=== PATIENT | female | born 1950 | race Caucasian/White ===

== ENCOUNTER 2018-01-04 01:13 | Outpatient (CLI) | payer MEDICARE, SELFPAY ==
--- NOTE | 2018-01-04 09:47 | DI.REPORT_ITS ---
SYMPTOM/DIAGNOSIS: SCREENING, Z12.31 MAMMOGRAM: 01/04 Mammograms were interpreted according to the usual protocol including computer analysis with CAD system, tomosynthesis and C view imaging. The breasts are heterogeneously dense. No dominant mass or clumped microcalcification identified in either breast. The current examination is compared with previous examinations including Apr 2016 and there is increased prominence of the focal area of asymmetric density projected superior portion of the right breast on MLO view only. Additional mammographic views of this area requested to include MLO spot compression view of the right breast. CONCLUSION: Additional mammographic views right breast requested as described above. Breast ultrasound may be indicated as well depending on results of additional mammographic views. Category 0. breast density category C. MQSA ASSESSMENT OF FINDINGS: Incomplete: Needs additional imaging evaluation. Category 0. Patient will receive a letter notifying them of these results. Bi-RADS category C. The breasts are heterogeneously dense, which may obscure small masses.
== END 2018-01-04 01:14 ==
PROVIDERS: PCP Nurse Practitioner; Visit Provider Nurse Practitioner
DX: Z12.31 Encounter for screening mammogram for malignant neoplasm of breast (principal); R92.8 Other abnormal and inconclusive findings on diagnostic imaging of breast
CPT/HCPCS: 77063; 77067

== ENCOUNTER 2018-01-11 01:48 | Outpatient (CLI) | payer MEDICARE, SELFPAY ==
[2018-01-11 11:54] LABS: Abs Immature Grans 0.03 k/cumm (0.0-0.09); Absolute Basophil Count 0.04 k/cumm (0.0-0.2); Absolute Lymphocyte Count 1.63 k/cumm (1.2-3.4); Absolute Monocyte Count 0.56 k/cumm (0.11-0.7); Absolute Neutrophil Count 3.87 k/cumm (1.2-6.7); Basophils % 0.6; Eosinophils % 3.2; HCT 45.6 % (36.0-46.0); HGB 14.9 g/dL (12.0-15.5); Immature Grans % 0.5; Lymphocytes % 25.8; Mean Corp. HGB Concentration 32.7 g/dL (32.0-36.0); Mean Corpuscular Hemoglobin 29.8 pg (27.0-33.0); Mean Corpuscular Volume 91.2 fL (80-95); Mean Platelet Volume 10.6 fL (8.0-11.0); Monocytes % 8.8; Neutrophils % 61.1; Platelet Count 269 x1000/uL (130-400); RBC Distribution Width 14.2 % (11.7-14.6); White Blood Cell Count 6.33 k/cumm (4.4-10.8)
[2018-01-11 12:05] LABS: ALT 65 U/L (12-78); AST 29 U/L (15-37); Alkaline Phosphatase 150 U/L (46-116); Anion Gap 8.2 mmol/L (3-11); BUN 18 mg/dL (7-18); Bilirubin, Total 0.4 mg/dL (0.2-1.0); CO2 28.8 mmol/L (21.0-32.0); CREATININE 0.74 mg/dL (0.55-1.02); Calcium 9.1 mg/dL (8.5-10.1); Chloride 104 mmol/L (98-107); Cholesterol 249 mg/dL (50-200); Glucose 88 mg/dL (70-100); HDL Cholesterol 60 mg/dL (40-60); LDL CHOLESTEROL 157 mg/dL (<100); Potassium 4.6 mmol/L (3.5-5.1); Sodium 141 mmol/L (136-145); Total Protein 7.2 g/dL (6.4-8.2); Triglyceride 125 mg/dL (30-150)
== END 2018-01-11 01:49 ==
PROVIDERS: PCP Nurse Practitioner; Visit Provider Nurse Practitioner
DX: E78.5 Hyperlipidemia, unspecified (principal)
CPT/HCPCS: 36415; 80053; 80061; 83721; 85025

== ENCOUNTER 2018-01-28 01:39 | Outpatient (CLI) | payer MEDICARE, SELFPAY ==
--- NOTE | 2018-01-28 13:50 | DI.REPORT_ITS ---
SYMPTOMS/DIAGNOSIS: F/U ABNORMAL MAMMO, ASYMMETRIC DENSITY IN SUPERIOR PORTION ON MLO VIEW ADDITIONAL MAMMOGRAPHIC VIEWS OF THE RIGHT BREAST AND RIGHT BREAST MAMMOGRAM: Additional images are interpreted according to the usual protocol including tomosynthesis and 2D imaging. Follow-up mediolateral compression spot films of the right breast were obtained. The breast tissue is heterogeneously radiodense, which lowers the sensitivity of the study. No discrete mass is identified. At ultrasound, no cyst or mass is seen. SUMMARY: No evidence of malignancy, category 1. Yearly screening mammography is recommended. Breast density category C. MQSA ASSESSMENT OF FINDINGS: Negative. Category 1. Patient will receive a letter notifying them of these results. Bi-RADS category C. The breasts are heterogeneously dense, which may obscure small masses.
== END 2018-01-28 01:40 ==
PROVIDERS: PCP Nurse Practitioner; Visit Provider Nurse Practitioner
DX: Z12.31 Encounter for screening mammogram for malignant neoplasm of breast (principal); R92.8 Other abnormal and inconclusive findings on diagnostic imaging of breast; N64.59 Other signs and symptoms in breast
CPT/HCPCS: 76642; 77063; 77067

== ENCOUNTER 2018-12-01 18:23 | Outpatient (REF) | payer MEDICARE, SELFPAY | END 2018-12-01 18:43 | LOC: LBN 18:23 | PROVIDERS: PCP Nurse Practitioner; Visit Provider Nurse Practitioner | DX: R31.9 Hematuria, unspecified (principal); R82.90 Unspecified abnormal findings in urine | CPT/HCPCS: 87086 ==

== ENCOUNTER 2019-01-05 00:50 | Outpatient (CLI) | payer MEDICARE, SELFPAY ==
--- NOTE | 2019-01-05 10:53 | DI.RAD_ITS ---
SYMPTOM/DIAGNOSIS: LOW BACK PAIN, M54.5 LUMBAR SPINE: No compression fracture, spondylolysis or spondylolisthesis is seen. There is no significant scoliosis. The disc spaces are well maintained. There are facet degenerative changes, greatest at L 4-5. The aorta is calcified but appears normal in diameter. There are surgical clips in the right upper quadrant. IMPRESSION: Facet degenerative changes greatest at L 4-5.
--- NOTE | 2019-01-05 11:28 | DI.MAMMO_ITS ---
SYMPTOM/DIAGNOSIS: SCREENING BILATERAL SCREENING MAMMOGRAM: Mammograms were interpreted according to the usual protocol including computer analysis with CAD system, tomosynthesis and C view imaging. Comparison is made with with exams from 2013 through 2018. Breast density category B. Biopsy marker clips are again noted in the upper, outer quadrant of the left breast. There are no suspicious masses or suspicious microcalcifications. There has been no significant change. IMPRESSION: Category 1, negative mammogram. Yearly screening mammography is recommended. Breast density category B. SA ASSESSMENT OF FINDINGS: Negative. Category 1. Patient will receive a letter notifying them of these results. BI-RADS category B. There are scattered areas of fibroglandular density.
== END 2019-01-05 01:10 ==
PROVIDERS: PCP Nurse Practitioner; Visit Provider Nurse Practitioner
DX: M54.5 Low back pain (principal); Z12.31 Encounter for screening mammogram for malignant neoplasm of breast; M47.816 Spondylosis without myelopathy or radiculopathy, lumbar region
CPT/HCPCS: 77063; 77067; 72110

== ENCOUNTER 2019-01-24 01:59 | Outpatient (CLI) | payer MEDICARE, SELFPAY ==
[2019-01-24 11:00] LABS: Calculated LDL 158 mg/dL; Cholesterol 248 mg/dL (50-200); HDL Cholesterol 60 mg/dL (40-60); Triglyceride 151 mg/dL (30-150)
== END 2019-01-24 02:19 ==
PROVIDERS: PCP Nurse Practitioner; Visit Provider Nurse Practitioner
DX: E78.5 Hyperlipidemia, unspecified (principal)
CPT/HCPCS: 36415; 80061; 83721

== ENCOUNTER 2019-02-11 10:55 | Outpatient (CLI) | payer MEDICARE, SELFPAY ==
[2019-02-14 12:08] LABS: Lyme Ab w Rflx to Lyme Confirm Negative
[2019-02-14 19:09] LABS: Anaplasma phagocytophilum Negative (Negative); B. miyamotoi PCR Negative (Negative); Babesia divergens/MO-1 Negative (Negative); Babesia duncani Negative (Negative); Babesia microti Negative (Negative); Ehrlichia chaffeensis Negative (Negative); Ehrlichia ewingii/canis Negative (Negative); Ehrlichia muris eauclairensis Negative (Negative)
== END 2019-02-11 11:15 ==
PROVIDERS: PCP Nurse Practitioner; Visit Provider Nurse Practitioner Family
DX: R53.83 Other fatigue (principal); W57.XXXA Bitten or stung by nonvenomous insect and other nonvenomous arthropods, initial encounter; T14.8XXA Other injury of unspecified body region, initial encounter
CPT/HCPCS: 36415; 87798; 86618

== ENCOUNTER 2019-11-14 08:31 | Outpatient (CLI) | payer MEDICARE, SELFPAY ==
[2019-11-15 15:37] LABS: COVID-19 RT-PCR UVMMC Result Negative (Negative)
== END 2019-11-14 08:51 ==
PROVIDERS: PCP Nurse Practitioner; Visit Provider Surgery
DX: Z03.818 Encounter for observation for suspected exposure to other biological agents ruled out (principal); Z01.818 Encounter for other preprocedural examination
CPT/HCPCS: U0003

== ENCOUNTER 2020-01-13 03:18 | Outpatient (CLI) | payer MEDICARE, SELFPAY ==
[2020-01-13 12:42] LABS: ALT 28 U/L (14-59); AST 22 U/L (15-37); Albumin 3.7 g/dL (3.4-5.0); Alkaline Phosphatase 103 U/L (46-116); Anion Gap 8.7 mmol/L (3-11); BUN 16 mg/dL (7-18); Bilirubin, Total 0.3 mg/dL (0.2-1.0); CO2 27.3 mmol/L (21.0-32.0); CREATININE 0.81 mg/dL (0.55-1.02); Calcium 8.8 mg/dL (8.5-10.1); Chloride 104 mmol/L (98-107); Glucose 96 mg/dL (74-106); Potassium 3.9 mmol/L (3.5-5.1); Sodium 140 mmol/L (136-145); Total Protein 6.8 g/dL (6.4-8.2)
[2020-01-13 12:58] LABS: ESR 16 mm/hr (0-30)
[2020-01-13 13:08] LABS: Calculated LDL 171 mg/dL (<100); Cholesterol 255 mg/dL (<200); HDL Cholesterol 59 mg/dL (40-60); Triglyceride 125 mg/dL (<150)
== END 2020-01-13 03:38 ==
PROVIDERS: PCP Nurse Practitioner; Visit Provider Nurse Practitioner
DX: E78.5 Hyperlipidemia, unspecified (principal); M25.50 Pain in unspecified joint
CPT/HCPCS: 36415; 80053; 80061; 85652; 86140

== ENCOUNTER 2020-01-25 03:30 | Outpatient (CLI) | payer MEDICARE, SELFPAY ==
[2020-01-25 21:24] LABS: Rheumatoid Factor <8.6 IU/mL (<12.0)
[2020-01-26 10:46] LABS: Lyme Ab w Rflx to Lyme Confirm Negative (Negative)
[2020-01-26 15:46] LABS: ANA Interpretation Negative (Negative)
== END 2020-01-25 03:50 ==
PROVIDERS: PCP Nurse Practitioner; Visit Provider Nurse Practitioner
DX: M25.551 Pain in right hip (principal); M25.552 Pain in left hip; M25.561 Pain in right knee; M25.562 Pain in left knee; M54.9 Dorsalgia, unspecified
CPT/HCPCS: 36415; 86038; 86431; 86618

== ENCOUNTER 2020-02-07 03:32 | Outpatient (CLI) | payer MEDICARE, SELFPAY ==
--- NOTE | 2020-02-07 13:08 | DI.MAMMO_ITS ---
EXAM: MAMMO SCREENING CLINICAL HISTORY: screening Z12.39 TECHNIQUE: Mammograms were interpreted according to the usual protocol including computer analysis w [employer] CAD system, tomosynthesis and C-view imaging. COMPARISON: 2011 through 2018 FINDINGS: The breasts are composed of scattered fibroglandular densities, Breast Density category B. No suspicious masses or suspicious microcalcifications are seen. No skin thickening or abnormal axillary lymph nodes are seen. Biopsy marker clips are again noted in the upper outer quadrant breast. Vascular calcifications are also seen. There has been no significant change from prior exams. IMPRESSION: BI-RADS Category 1, Negative mammogram Yearly screening mammography is recommended. Breast Density - Category B, scattered fibroglandular densities. A negative radiographic report should not delay biopsy if a dominant or clinically suspicious mass is present. Up to ten percent of cancers are not identified on mammography. A negative report may reinforce clinical impression. Adenosis and dense breasts may obscure an underlying neoplasm. False positive reports average 6 to 10%. Patient will receive a letter notifying them of these results.
== END 2020-02-07 03:52 ==
PROVIDERS: PCP Nurse Practitioner; Visit Provider Nurse Practitioner
DX: Z12.31 Encounter for screening mammogram for malignant neoplasm of breast (principal)
CPT/HCPCS: 77063; 77067

== ENCOUNTER 2020-02-20 01:05 | Outpatient (CLI) | payer MEDICARE, SELFPAY ==
--- NOTE | 2020-02-20 16:09 | DI.DEXA_ITS ---
EXAM: XR DEXA BONE DENSITY W/WO KALIE CLINICAL HISTORY: evaluation for osteoporosis m85.88 TECHNIQUE: COMPARISON: CR XR lumbar spine complete from 01/05/2019 FINDINGS: Lateral Spine Image: Unremarkable. No compression deformities identified. Left hip: Total T-Score: -1.6 Total Z-Score: 0.2 T- and Z-scores: Consistent with osteopenia and increased fracture risk. Lumbar Spine: Total T-Score: -3.4 Total Z-Score: -1.4 T- and Z-scores: Consistent with osteoporosis and high fracture risk. IMPRESSION: Osteoporosis in the lumbar spine.
== END 2020-02-20 01:25 ==
PROVIDERS: PCP Nurse Practitioner; Visit Provider Nurse Practitioner
DX: M85.88 Other specified disorders of bone density and structure, other site (principal)
CPT/HCPCS: 77080

== ENCOUNTER 2021-02-01 20:14 | Outpatient (REF) | payer OTHER, SELFPAY ==
[2021-02-01 21:00] LABS: HCT 45.7 % (36.0-46.0); HGB 14.7 g/dL (11.2-15.7); MCH 29.9 pg (27.0-33.0); MCHC 32.2 % (32.0-36.0); MCV 92.9 fL (80-95); MPV 10.7 fL (8.0-11.0); Platelet Count 304 10^3/uL (130-400); RBC 4.92 10^6/uL (3.93-5.22); RDW 13.4 % (11.7-14.6); RDW-SD 45.8 fL; WBC 7.73 10^3/uL (4.4-10.8)
[2021-02-01 21:17] LABS: ALT 66 U/L (14-59); AST 48 U/L (15-37); Albumin 4.4 g/dL (3.4-5.0); Alkaline Phosphatase 119 U/L (46-116); Anion Gap 10.7 mmol/L (3-11); BUN 14 mg/dL (7-18); Bilirubin, Total 0.5 mg/dL (0.2-1.0); CO2 28.3 mmol/L (21.0-32.0); CREATININE 0.9 mg/dL (0.55-1.02); Calcium 9.5 mg/dL (8.5-10.1); Calculated LDL 183 mg/dL (<100); Chloride 104 mmol/L (98-107); Cholesterol 270 mg/dL (<200); Glucose 91 mg/dL (74-106); HDL Cholesterol 69 mg/dL (40-60); Potassium 4.1 mmol/L (3.5-5.1); Sodium 143 mmol/L (136-145); Total Protein 7.4 g/dL (6.4-8.2); Triglyceride 92 mg/dL (<150)
== END 2021-02-01 20:15 | disposition home or self-care (01) ==
LOC: LBN 20:14
PROVIDERS: PCP Nurse Practitioner; Visit Provider Nurse Practitioner
DX: E78.5 Hyperlipidemia, unspecified (principal)
CPT/HCPCS: 80053; 80061; 85027

== ENCOUNTER 2021-02-07 01:47 | Outpatient (CLI) | payer OTHER, SELFPAY ==
--- NOTE | 2021-02-07 08:00 | DI.MAMMO_ITS ---
Exam(s) MAMMO SCREENING EXAM: MAMMO SCREENING CLINICAL HISTORY: screening,Z12.39. TECHNIQUE: Bilateral full field digital CC and MLO mammographic images were obtained with 3D tomosyn thesis and utilizing computer aided detection (CAD). COMPARISON: Prior mammograms dating back to 2011, the most recent being January 2020. FINDINGS: There has been no significant change in the appearance and distribution of fibroglandular tissue. No new findings in the immediate vicinity of the biopsy marker devices in the left breast. There are no new spiculated masses nor malignant appearing microcalcification groups. There is no significant architectural distortion nor skin thickening-retraction. IMPRESSION: No radiographic evidence of malignancy. BI-RADS Category 1 - Negative Breast Density - Category B - Scattered areas of fibroglandular density Breast density Category C or D implies that the patient has dense breast tissue. Dense breast tissue can make it harder to find cancer on a mammogram. Dense breast tissue is also associated with an incr eased risk of breast cancer. This information about the result of the mammogram report was provided to the patient to raise their awareness. Use this report when you speak with the patient about their risks for breast cancer, which includes their family history. At that time, you may recommend additional screening tests (Ultrasoun d or MRI) as these tests may add significant information. A negative radiographic report should not delay biopsy if a dominant or clinically suspicious mass is present. Up to ten percent of cancers are not identified on mammography. A negative report may reinforce clinical impression. Adenosis and dense breasts may obscure an underlying neoplasm. False positive reports average 6 to 10%. Patient will receive a letter notifying them of these results.
== END 2021-02-07 02:07 ==
LOC: DI 01:47
PROVIDERS: PCP Nurse Practitioner; Visit Provider Nurse Practitioner
DX: Z12.31 Encounter for screening mammogram for malignant neoplasm of breast (principal)
CPT/HCPCS: 77063; 77067

== ENCOUNTER 2021-02-20 13:11 | Outpatient (REF) | payer OTHER, SELFPAY ==
[2021-02-20 15:01] LABS: ALT 31 U/L (14-59); AST 22 U/L (15-37); Alkaline Phosphatase 108 U/L (46-116); Bilirubin, Direct 0.1 mg/dL (0.0-0.2); Bilirubin, Total 0.3 mg/dL (0.2-1.0); Total Protein 7.3 g/dL (6.4-8.2)
== END 2021-02-20 13:12 | disposition home or self-care (01) ==
LOC: LBN 13:11
PROVIDERS: PCP Nurse Practitioner; Visit Provider Nurse Practitioner
DX: R79.89 Other specified abnormal findings of blood chemistry (principal)
CPT/HCPCS: 80076

== ENCOUNTER 2021-11-04 03:55 | Outpatient (CLI) | payer MEDICARE, SELFPAY | END 2021-11-04 03:56 | disposition home or self-care (01) | LOC: LBO 03:55 | PROVIDERS: PCP Nurse Practitioner; Visit Provider Nurse Practitioner ==

== ENCOUNTER 2021-11-28 02:36 | Outpatient (CLI) | payer MEDICARE, SELFPAY ==
[2021-12-02 15:05] LABS: TB Interpretation Negative (Negative); TB2 Ag minus Nil 0.03 IU/mL
== END 2021-11-28 02:37 | disposition home or self-care (01) ==
LOC: LBO 02:36
PROVIDERS: PCP Nurse Practitioner; Visit Provider Nurse Practitioner
DX: Z11.1 Encounter for screening for respiratory tuberculosis (principal)
CPT/HCPCS: 36415; 86480

== ENCOUNTER 2022-01-24 01:11 | Outpatient (CLI) | payer MEDICARE, SELFPAY ==
[2022-01-24 09:34] LABS: ALT 21 U/L (14-59); AST 18 U/L (15-37); Albumin 3.6 g/dL (3.4-5.0); Alkaline Phosphatase 91 U/L (46-116); Anion Gap 7.2 mmol/L (3-11); BUN 14 mg/dL (7-18); Bilirubin, Total 0.4 mg/dL (0.2-1.0); CO2 30.8 mmol/L (21.0-32.0); CREATININE 0.7 mg/dL (0.55-1.02); Calcium 8.9 mg/dL (8.5-10.1); Calculated LDL 153 mg/dL (<100); Chloride 105 mmol/L (98-107); Cholesterol 243 mg/dL (<200); Glucose 94 mg/dL (74-106); HDL Cholesterol 66 mg/dL (40-60); Potassium 3.8 mmol/L (3.5-5.1); Sodium 143 mmol/L (136-145); Total Protein 7.4 g/dL (6.4-8.2); Triglyceride 120 mg/dL (<150)
== END 2022-01-24 01:12 | disposition home or self-care (01) ==
LOC: LBO 01:12
PROVIDERS: PCP Nurse Practitioner; Visit Provider Internal Medicine
DX: E78.00 Pure hypercholesterolemia, unspecified (principal); R79.89 Other specified abnormal findings of blood chemistry
CPT/HCPCS: 36415; 80053; 80061

== ENCOUNTER → 2022-02-10 01:58 | Outpatient (CLI) | payer MEDICARE, SELFPAY ==
--- NOTE | 2022-02-10 08:45 | DI.MAMMO_ITS ---
Exam(s) MAMMO SCREENING EXAM: MAMMO SCREENING CLINICAL HISTORY: screening,Z12.39. TECHNIQUE: Bilateral full field digital CC and MLO mammographic images were obtained with 3D tomosyn thesis and utilizing computer aided detection (CAD). COMPARISON: Prior mammograms were reviewed, the most recent being January 2021.. FINDINGS: There has been no significant change in the appearance and distribution of the fibroglandular tissue. No new findings in the region of the biopsy marker devices in the breast. There are no new spiculated masses nor malignant appearing microcalcification groups. There is no significant architectural distortion nor skin thickening-retraction. IMPRESSION: No radiographic evidence of malignancy. BI-RADS Category 1 - Negative Breast Density - Category B - Scattered areas of fibroglandular density Breast density Category C or D implies that the patient has dense breast tissue. Dense breast tissue can make it harder to find cancer on a mammogram. Dense breast tissue is also associated with an incr eased risk of breast cancer. This information about the result of the mammogram report was provided to the patient to raise their awareness. Use this report when you speak with the patient about their risks for breast cancer, which includes their family history. At that time, you may recommend additional screening tests (Ultrasoun d or MRI) as these tests may add significant information. A negative radiographic report should not delay biopsy if a dominant or clinically suspicious mass is present. Up to ten percent of cancers are not identified on mammography. A negative report may reinforce clinical impression. Adenosis and dense breasts may obscure an underlying neoplasm. False positive reports average 6 to 10%. Patient will receive a letter notifying them of these results.
== END ==
PROVIDERS: PCP Nurse Practitioner; Visit Provider Internal Medicine
DX: Z12.31 Encounter for screening mammogram for malignant neoplasm of breast (principal)
CPT/HCPCS: 77063; 77067

== ENCOUNTER 2022-11-19 12:24 | Emergency (ER) | payer MEDICARE, SELFPAY ==
[2022-11-19] VITALS (43 sets, daily range): BP systolic 83–128; BP diastolic 45–71; PULSE 63–81; RESP 11–21; TEMP 36.8; O2SAT 95–100
--- NOTE | 2022-11-19 12:45 | RT.EKG_ITS ---
APPROVED REPORT Exam: Resting ECG Reason for Exam: chest pain Patient Location: E HR:72 bpm ECG Measurements Heart Rate 72 AXIS RI 142 P 64 QRSd 102 QRS 68 QT 394 T 36 QTc 431 Conclusion Sinus rhythm...normal P axis, V-rate 60- 99 Sinus rhytm. No prior.
[2022-11-19 13:36] LABS: Abs Immature Grans 0.01 10^3/uL (0.0-0.06); Absolute Basophil Count 0.03 10^3/uL (0.0-0.2); Absolute Eosinophil Count 0.14 10^3/uL (0.0-0.7); Absolute Lymphocyte Count 1.53 10^3/uL (1.2-3.4); Absolute Monocyte Count 0.45 10^3/uL (0.1-0.8); Absolute Neutrophil Count 3.95 10^3/uL (1.2-6.7); Basophils % 0.5; Eosinophils % 2.3; HCT 41.1 % (36.0-46.0); HGB 13.7 g/dL (11.2-15.7); Immature Grans % 0.2; MCH 30.9 pg (27.0-33.0); MCHC 33.3 % (32.0-36.0); MCV 93 fL (80-95); Monocytes % 7.4; Neutrophils % 64.6; Platelet Count 290 10^3/uL (130-400); RBC 4.43 10^6/uL (3.93-5.22); RDW 13.1 % (11.7-14.6); RDW-SD 44.6 fL; WBC 6.11 10^3/uL (4.4-10.8)
[2022-11-19] MEDS: FAMOTIDINE 20 MG in Normal Saline 100 ML 400 MG IVPB (13:51)
[2022-11-19 14:00] LABS: ALT 32 U/L (14-59); AST 28 U/L (15-37); Albumin 3.8 g/dL (3.4-5.0); Alkaline Phosphatase 132 U/L (46-116); Anion Gap 7.9 mmol/L (3-11); BUN 21 mg/dL (7-18); Bilirubin, Total 0.3 mg/dL (0.2-1.0); CO2 29.1 mmol/L (21.0-32.0); CREATININE 0.9 mg/dL (0.55-1.02); Calcium 9.4 mg/dL (8.5-10.1); Chloride 102 mmol/L (98-107); Estimated GFR 68.35 (mL/min/1.73m2); Glucose 95 mg/dL (74-106); Lipase 25 U/L (16-77); Magnesium 2.1 mg/dL (1.8-2.4); Potassium 4.2 mmol/L (3.5-5.1); Sodium 139 mmol/L (136-145)
[2022-11-19 14:05] LABS: Troponin I < 50 ng/L (<or=60)
--- NOTE | 2022-11-19 14:30 | DI.RAD_ITS ---
Exam(s) XR CHEST 2V PA LATERAL EXAM: XR CHEST 2V PA LATERAL CLINICAL HISTORY: chest pain TECHNIQUE: 2D digital imaging was performed of the chest. Two images were obtained. PA and lateral views were obtained. COMPARISON: No exams were available for comparison FINDINGS: MEDIASTINUM: Normal. HEART: Normal. PULMONARY VASCULATURE: Normal. LUNGS: Clear. PLEURAL SPACE: No pleural effusion or pneumothorax. BONE:Within normal limits for the patient's age. OTHER FINDINGS:Normal. IMPRESSION: No acute pulmonary findings. DATA REPOSITORY: RADIATION DOSE DELIVERED:
--- NOTE | 2022-11-19 14:40 | W.ED.GENAD ---
Discharge Plan Disposition Patient Disposition: Home Condition: Improving Discharge Details Clinical Impression: Acute epigastric pain Primary Care Provider: Raine Lay ED Provider: Guy James Home Meds and New Rx's Prescriptions: New sucralfate [Carafate] 1 gram tablet 1 g PO BID Qty: 20 0RF Continued omeprazole 20 mg Tablet,Delayed Release (Dr/Ec) PO Discharge Instructions Instructions: Abdominal Pain (ED) Additional Instructions: Take Carafate, omeprazole, and Pepcid Follow-up with your doctor for outpatient stress test Stay away from spicy foods and acidic foods Return earlier should you have new or worsening complaints Referrals: Raine Lay, ARIADNA [Primary Care Provider] - 1 day Discharge Data Discharge Date/Time-TO BE ENTERED AT DEPARTURE: 11/19/22 17:30 Medical Decision Making <REZA Ravi - Last Filed: 11/20/22 11:37> 72-year-old female, calm and cooperative, no acute distress, no reproducible abdominal tenderness alert and oriented x4, no respiratory distress, respirations within normal limits, no peripheral edema, no calf swelling or tenderness, distal pulses intact, troponin and EKG do not show evidence of acute abnormality, did consider CT imaging, however no reproducible tenderness and no significant distress, improved symptoms with Pepcid and GI cocktail Vitals are stable Signout to Arpan James pending repeat troponin and likely disposition home on Carafate, Pepcid, and omeprazole at 1610 -1610 patient signed out to me by Kacie COBB. Please see initial documentation for HPI real review of systems and plan of care. I did follow-up on troponin and labs which were all negative and nondiagnostic. Did reassess patient and patient does state improvement after medication. I suspect possible gastritis, GERD, esophagitis. Discussed with patient lifestyle factors that could be contributing to this. She does have a moderate heart score and so I do feel would be beneficial for her to follow-up on an outpatient basis to discuss stress testing which she stated was she had approximately 10 years ago but was negative at that time. Patient states personal low suspicion that this is cardiac in nature. Patient agrees with plan of home disposition and return for any new or worsening symptoms and to follow-up with primary care provider. <Guy James NP - Last Filed: 11/21/22 10:19> 72-year-old female, calm and cooperative, no acute distress, no reproducible abdominal tenderness, troponin and EKG do not show evidence of acute abnormality, did consider CT imaging, however no reproducible tenderness and no significant distress, improved symptoms with Pepcid and GI cocktail Vitals are stable -1610 patient signed out to me by Kacie COBB. Please see initial documentation for HPI real review of systems and plan of care. I did follow-up on troponin and labs which were all negative and nondiagnostic. Did reassess patient and patient does state improvement after medication. I suspect possible gastritis, GERD, esophagitis. Discussed with patient lifestyle factors that could be contributing to this. She does have a moderate heart score and so I do feel would be beneficial for her to follow-up on an outpatient basis to discuss stress testing which she stated was she had approximately 10 years ago but was negative at that time. Patient states personal low suspicion that this is cardiac in nature. Patient agrees with plan of home disposition and return for any new or worsening symptoms and to follow-up with primary care provider. HPI <REZA Ravi - Last Filed: 11/20/22 11:37> General Date/Time Provider Initiated Documentation: 11/19/22 12:52. HPI Narrative: 72-year-old female presents with epigastric pain that is been occurring for the past 2 to 3 weeks. Worse with drinking tea. Denies any chest pain or shortness of breath. Denies nausea or vomiting. Denies known history of abdominal aortic aneurysm. Has had numerous abdominal surgeries. Denies any fever or chills. Denies any weakness or diaphoresis. History of hyperlipidemia, does not smoke regularly, drink alcohol, and denies any history of coronary artery disease. Has had a stress test but approximately 15 years ago. Denies exertional symptoms. Was waking all day yesterday without reproduction of her discomfort. States her pain is intermittent in nature, states is mild in discomfort. Related Data Home Medications Medication Instructions Recorded Confirmed omeprazole 20 mg tablet,delayed mg PO 11/19/22 release sucralfate 1 gram tablet (Carafate) 1 g PO BID #20 tabs 11/19/22 Previous Rx's Medication Instructions Recorded sucralfate 1 gram tablet (Carafate) 1 g PO BID #20 tabs 11/19/22 Allergies Allergy/AdvReac Type Severity Reaction Status Date / Time Penicillins Allergy Unknown Verified 10/30/21 10:27 codeine AdvReac Unknown Rash & SOB Verified 10/30/21 10:27 statin intolerance AdvReac Uncoded 10/30/21 10:27 General Stated Complaint: Chest Pain ELIZ: 3 PFSH <REZA Ravi - Last Filed: 11/20/22 11:37> All Active Problems (Updated 11/19/22 @ 16:04 by REZA Ravi) Acute epigastric pain (Acute) Abnormal blood chemistry (Acute) History of fracture (Acute) Ex-smoker (Acute) Osteopenia (Acute) Height loss (Acute) Family hx osteoporosis (Acute) Bilateral knee pain (Acute) Bilateral hip pain (Acute) Back pain (Acute) Medicare annual wellness visit, subsequent (Acute) Arthralgia (Acute) Toe swelling (Acute) Toe erythema (Acute) Kidney stone (Chronic) Routine general medical examination at a health care facility (Acute) Edema (Acute 12/04/16) Encounter to establish care (Acute 12/07/17) Hyperlipidemia (Acute 12/04/16) Osteoarthritis of both knees (Acute 12/04/16) Tubular adenoma of colon (Acute 12/04/16) 11/17/19 Dr Annie Gillespie MD general surgery [facility].Colon tubular adenoma Medical History Ex-smoker Family hx osteoporosis Height loss History of fracture Osteopenia Surgical History S/P appendectomy S/P cholecystectomy S/P cystoscopy S/P hysterectomy Family History Mother Alzheimer's dementia Father Alzheimer's dementia Parkinsons disease Social History (Updated 02/25/22 @ 11:15 by Junie Loza LPN) Smoking/Tobacco Use Status: Former Tobacco Use Quit Date: 01/30/13 Smoking risk assessment performed?: Yes Alcohol Intake: current Alcohol Intake frequency: a few times a week Alcohol type: wine Drug use: Never Substance use type: does not use Household members: spouse Number of Children: 2 number of grandchildren: 4 Communication Needs: None current occupation: NURSE What is your relationship status?: How often do you talk on the phone with friends or family?: three or more times per week How often do you get together with friends or relatives?: twice per week Panel score (0-1 are the most socially isolated patients): 2 What type of physical activity do you participate in: walking Duration: 15-30 minutes/day Frequency: 5-6 times per week Seatbelt use: sometimes Working smoke detector in home: Yes Carbon monox detector in home: Yes Do you feel safe at home: Yes Do you feel safe in your relationship?: Yes Course <REZA Ravi - Last Filed: 11/20/22 11:37> Vital Signs Vital signs: Vital Signs Temperature 36.8 C 11/19/22 12:36 Pulse 81 11/19/22 12:36 Respiratory Rate 16 11/19/22 12:36 Blood Pressure 117/64 11/19/22 12:36 Pulse Oximetry 100 11/19/22 12:36 Temperature 36.8 C 11/19/22 12:36 Temperature Source Oral 11/19/22 12:36 Pulse 81 11/19/22 12:36 Respiratory Rate 16 11/19/22 12:36 Respiratory Effort Normal, Non-Labored 11/19/22 13:45 Blood Pressure 117/64 11/19/22 12:36 Pulse Oximetry 100 11/19/22 12:36 Oxygen Delivery Method Room Air 11/19/22 12:36 Oxygen Flow Rate 0 11/19/22 12:36 Lab/Test Results Lab/Test Results: Laboratory Tests Range/Units 11/19/22 11/19/22 13:24 13:24 WBC (4.4-10.8) 10^3/uL 6.11 RBC (3.93-5.22) 10^6/uL 4.43 Hgb (11.2-15.7) g/dL 13.7 Hct (36.0-46.0) % 41.1 MCV (80-95) fL 93 MCH (27.0-33.0) pg 30.9 MCHC (32.0-36.0) % 33.3 RDW (11.7-14.6) % 13.1 Plt Count (130-400) 10^3/uL 290 MPV (8.0-11.0) fL 9.0 Immature Gran % 0.2 Neutrophils % 64.6 Lymphocytes % 25.0 Monocytes % 7.4 Eosinophils % 2.3 Basophils % 0.5 Nucleated RBC % (0.0-0.3) % 0.0 Absolute Neutrophils (1.2-6.7) 10^3/uL 3.95 Absolute Lymphocytes (1.2-3.4) 10^3/uL 1.53 Absolute Monocytes (0.1-0.8) 10^3/uL 0.45 Absolute Eosinophils (0.0-0.7) 10^3/uL 0.14 Absolute Basophils (0.0-0.2) 10^3/uL 0.03 Sodium (136-145) mmol/L 139 Potassium (3.5-5.1) mmol/L 4.2 Chloride (98-107) mmol/L 102 Carbon Dioxide (21.0-32.0) mmol/L 29.1 Anion Gap (3-11) mmol/L 7.9 BUN (7-18) mg/dL 21 H Creatinine (0.55-1.02) mg/dL 0.9 Est GFR (CKD-EPI 2020) (mL/min/1.73m2) 68.35 Glucose (74-106) mg/dL 95 Calcium (8.5-10.1) mg/dL 9.4 Magnesium (1.8-2.4) mg/dL 2.1 Total Bilirubin (0.2-1.0) mg/dL 0.3 AST (15-37) U/L 28 ALT (14-59) U/L 32 Alkaline Phosphatase (46-116) U/L 132 H Troponin I (<or=60) ng/L < 50 Total Protein (6.4-8.2) g/dL 7.0 Albumin (3.4-5.0) g/dL 3.8 Lipase (16-77) U/L 25 Critical Care Time <REZA Ravi - Last Filed: 11/20/22 11:37> Critical Care Time Attestation: EKG interpretation and review, diagnostic lab interpretation and review, x-ray imaging interpretation and review, cardiology consultation at [facility], heparinization, telemetry monitoring, and ultimately transfer to [facility] for intervention proximally 45 minutes of critical care time secondary to Sign Out <REZA Ravi - Last Filed: 11/20/22 11:37> Sign Out Data: Sign Out Comment: pending repeat troponin and cxr Last updated by Kacie Griffin PA at 11/19/22 16:08
[2022-11-19] MEDS: Mylanta Suspension 30 ML CUP PO (14:48)
[2022-11-19 16:24] LABS: Troponin I < 50 ng/L (<or=60)
--- NOTE | 2022-11-19 17:24 | NUR.NOTE ---
Nursing Note: PT needs follow up in one week with PCP for epigastric pain, consider stress test. Melody, ED
== END 2022-11-19 17:30 | disposition home or self-care (01) ==
PROVIDERS: Physician Assistant; Emergency Provider Nurse Practitioner Family; PCP Nurse Practitioner
DX: R10.13 Epigastric pain (principal); R07.9 Chest pain, unspecified
CPT/HCPCS: 36415; 80053; 83690; 93005; 96374; 99284; 71046; 83735; 84484; 85025; 93010

== ENCOUNTER → 2023-02-11 01:34 | Outpatient (CLI) | payer MEDICARE, SELFPAY ==
--- NOTE | 2023-02-11 07:30 | DI.MAMMO_ITS ---
Exam(s) MAMMO SCREENING EXAM: MAMMO SCREENING CLINICAL HISTORY: screening,z12.39. TECHNIQUE: Bilateral full field digital CC and MLO mammographic images were obtained with 3D tomosyn thesis and utilizing computer aided detection (CAD). COMPARISON: Prior mammograms were reviewed. FINDINGS: There has been no significant change in the appearance and distribution of the fibroglandular tissue. There are 2 biopsy marker clips again noted in the left breast with no new findings in the immediate vicinity of these biopsy marker devices. There are no new spiculated masses nor malignant appearing microcalcification groups. There is no significant architectural distortion nor skin thickening-retraction. IMPRESSION: No radiographic evidence of malignancy. BI-RADS Category 1 - Negative Breast Density - Category B - Scattered areas of fibroglandular density Breast density Category C or D implies that the patient has dense breast tissue. Dense breast tissue can make it harder to find cancer on a mammogram. Dense breast tissue is also associated with an incr eased risk of breast cancer. This information about the result of the mammogram report was provided to the patient to raise their awareness. Use this report when you speak with the patient about their risks for breast cancer, which includes their family history. At that time, you may recommend additional screening tests (Ultrasoun d or MRI) as these tests may add significant information. A negative radiographic report should not delay biopsy if a dominant or clinically suspicious mass is present. Up to ten percent of cancers are not identified on mammography. A negative report may reinforce clinical impression. Adenosis and dense breasts may obscure an underlying neoplasm. False positive reports average 6 to 10%. Patient will receive a letter notifying them of these results.
== END ==
PROVIDERS: PCP Nurse Practitioner; Visit Provider Nurse Practitioner
DX: Z12.31 Encounter for screening mammogram for malignant neoplasm of breast (principal)
CPT/HCPCS: 77063; 77067

== ENCOUNTER 2023-11-18 11:04 | Emergency (ER) | payer MEDICARE, SELFPAY ==
[2023-11-18 11:06] VITALS: BP 109/77; PULSE 91; RESP 14; TEMP 36.8; O2SAT 98
--- NOTE | 2023-11-18 11:26 | ED.GENADUL_ITS ---
Discharge Plan Disposition Patient Disposition: Home Condition: Stable Discharge Details Clinical Impression: Lumbar back pain Primary Care Provider: Raien Lay ED Provider: Elver Lozoya Home Meds and New Rx's Prescriptions: New cyclobenzaprine 10 mg tablet 10 mg PO TID PRN (Reason: lumbar back pain) Qty: 30 0RF Continued tamsulosin 0.4 mg capsule 0.4 mg PO DAILY pantoprazole 40 mg tablet,delayed release (DR/EC) 40 mg PO DAILY acetaminophen 500 mg tablet 1,000 mg PO TID PRN Discharge Instructions Instructions: Cyclobenzaprine, Low Back Pain ED Additional Instructions: You were seen in the emergency department for your low back pain with recent ureteral stent removal, we performed a workup to make sure you are not having recurrence of any renal problems. Your ultrasound is clear, your kidney function is normal and there is no signs of infection, there is a small amount of microscopic blood in your urine this is likely expected finding after recent removal of ureteral stents. You did have some tenderness to your lumbar spine paraspinally and I do believe that you are having an element of sciatica with your pain radiating down your leg Please take 650 mg of Tylenol every 6 hours, apply topical [id number] Voltaren gel to the area of pain each day, wear a lidocaine patch for 12 hours each night, use the provided cyclobenzaprine sent to [facility] in [place] for muscle relaxation, alternate heat and ice to the area. Please follow-up with physical therapy referrals in the area and pursue outpatient approval of a possible MRI for your lumbar spine for any disc pathology. Please return for any severe increase in lower back or flank pain especially with fever, urinary retention, bowel incontinence, groin numbness, nausea vomiting, dysuria. Stand Alone Forms: Physical Therapy Referral Referrals: Raine Lay, [employer] [Primary Care Provider] - Discharge Data Discharge Date/Time-TO BE ENTERED AT DEPARTURE: 11/18/23 15:07 HPI General Date/Time Provider Initiated Documentation: 11/18/23 11:26 . HPI Narrative: 73 year-old female presents to ED today with a chief complaint of L flank pain, recent ureteral stent removal from prior hydronephrosis/stone with onset of increasing flank pain over the past few days. Patient recently arrived to the area and is camping for the summer at [facility]- patient is also endorsing this L flank pain is shooting down her L leg. Quality described as lower destiny pain, much lower than prior flank pain, and shooting pains occasionally into L leg, no radiation to dysuria, urinary retention, hematuria, fever, nausea/vomiting, endorses some diarrhea, denies severe numbness/tingling/weakness of legs. Severity is described as moderate. Palliating factors include nothing specific attempted. Provoking factors include nothing specific. Events leading up to the incident/Associated Symptoms: Patient has a repeat U/S sheduled next week for routine f/u from her stent removal. Patient not anticoagulated. Related Data Home Medications Medication Instructions Recorded Confirmed pantoprazole 40 mg tablet,delayed 40 mg PO DAILY 11/06/23 11/18/23 release tamsulosin 0.4 mg capsule 0.4 mg PO DAILY 11/06/23 11/18/23 acetaminophen 500 mg tablet 1,000 mg PO TID PRN 11/18/23 11/18/23 cyclobenzaprine 10 mg tablet 10 mg PO TID PRN lumbar back pain 11/18/23 #30 tabs Previous Rx's Medication Instructions Recorded cyclobenzaprine 10 mg tablet 10 mg PO TID PRN lumbar back pain 11/18/23 #30 tabs Allergies Allergy/AdvReac Type Severity Reaction Status Date / Time Penicillins Allergy Unknown Anaphylaxis Verified 11/18/23 11:14 codeine AdvReac Unknown Rash & SOB Verified 11/18/23 11:14 tramadol AdvReac Intermediate Nausea Uncoded 11/18/23 11:14 statin intolerance AdvReac can't walk Uncoded 11/18/23 11:14 General Stated Complaint: FlankPain ELIZ: 3 Review of Systems All systems reviewed & are unremarkable except as noted in HPI and below Exam Narrative Exam Narrative: GENERAL APPEARANCE: Well-nourished, non-toxic, awake and alert, atraumatic, no acute distress. SKIN: Warm, pink, dry, intact, without rashes/lesions/ulcerations. HEAD: Normocephalic, atraumatic, normal hair distribution for gender/age. EYES: Pupils PERRLA, EOMs intact without nystagmus, normal conjunctiva, no exudates on lids/lashes. ENT: Nares patent, no circumoral cyanosis, no facial swelling NECK: Supple, trachea midline, painless cervical ROM. LUNGS/CHEST: Lungs CTA bilaterally, non-labored respirations, normal A/P diameter, symmetrical expansion, no chest wall deformity HEART (CV/PV): Regular rate and rhythm without murmur, no peripheral edema, no JVD. ABDOMEN: Soft, non-distended, no guarding. MSK: Normal ROM, no swelling/deformity to bilateral UEs or LEs, moving all extremities without weakness, no cyanosis, spine midline without tenderness, normal curvature. NEURO: Mental Status AAOx4 - alert to person, place, time, events No facial droop, no forehead involvement. Motor: No focal weakness - strength 5/5 in bilateral UEs and LEs, proximal and distal, symmetric. Sensory: sensation intact to light touch globally. Gait normal: patient ambulated without ataxia into ED room. PSYCH: euthymic, cooperative, pleasant, appropriate speech Course Vital Signs Vital signs: Vital Signs Temperature 36.8 C 11/18/23 11:06 Pulse 91 H 11/18/23 11:06 Respiratory Rate 14 11/18/23 11:06 Blood Pressure 109/77 11/18/23 11:06 Pulse Oximetry 98 11/18/23 11:06 Temperature 36.8 C 11/18/23 11:06 Temperature Source Temporal Artery Scan 11/18/23 11:06 Pulse 91 H 11/18/23 11:06 Respiratory Rate 14 11/18/23 11:06 Blood Pressure 109/77 11/18/23 11:06 Blood Pressure Position Sitting 11/18/23 11:06 Pulse Oximetry 98 11/18/23 11:06 Oxygen Delivery Method Room Air 11/18/23 11:06 Oxygen Flow Rate 0 11/18/23 11:06 Pain Level 5 11/18/23 11:06 Medical Decision Making This dictation utilizes [id number] dictation software and may contain unedited grammatical errors. 73 year-old female presents to ED today with a chief complaint of L flank pain, recent ureteral stent removal from prior hydronephrosis/stone with onset of increasing flank pain over the past few days. Patient recently arrived to the [facility] and is camping for the summer at [facility]- patient is also endorsing this L flank pain is shooting down her L leg. Quality described as lower destiny pain, much lower than prior flank pain, and shooting pains occasionally into L leg, no radiation to dysuria, urinary retention, hematuria, fever, nausea/vomiting, endorses some diarrhea, denies severe numbness/tingling/weakness of legs. Severity is described as moderate. Palliating factors include nothing specific attempted. Provoking factors include nothing specific. Events leading up to the incident/Associated Symptoms: Patient has a repeat U/S sheduled next week for routine f/u from her stent removal. Patients' medical history: Status post hysterectomy, appendectomy, cholecystectomy, history of kidney stone, recent stent removal, denies cardiac history, denies history of sciatica. Family and social history: Noncontributory. Pertinent exam findings / vital signs include mild paraspinal left lumbar tenderness with radiation through the gluteal muscles and sciatic distribution, neurovascularly intact in the left lower extremity, no CVA tenderness bilaterally, no abdominal tenderness. Differential / pathologies of concern include sciatica, hydronephrosis, UTI, pyelonephritis. Diagnostic studies of: -CBC, CMP, UA, US Renal. -CBC without leukocytosis -CMP benign -UA no UTI, no protein -US Renal no hydronephrosis Interventions of: -PT referral, cyclobenzaprine, patient educated on symptomatic treatment of sciatica. ED Course/Assessment/Plan: Patient with renal stent removal recently presents with left flank pain but this feels slightly different and has left paraspinal lumbar tenderness shooting down in sciatic distribution, CMP shows no KIKI, your urine shows no UTI, US renal shows no hydronephrosis, this is unlikely related to the patient's recent ureteral stent removal I suspect they have an element of sciatica without cauda equina. I did provide a PT referral counseled on therapeutic Tylenol use, topic al Voltaren due to their inability to tolerate p.o NSAIDs, lidocaine patching at night, cyclobenzaprine for skeletal muscle relaxation. Counseled on strict return criteria for any worsening abdominal pain especially with fever, nausea, weakness, any complete neurovascular compromise to lower extremities. Findings not consistent with pyelonephritis, UTI, cauda equina, hydronephrosis, urinary obstruction. Disposition of lumbar back pain. Patient verbalized understanding of the plan and return to ED criteria and engaged in shared decision making. Medical Records Medical records reviewed: Yes I reviewed the patient's medical records. Imaging Data Radiologic Study: Attestation: I personally reviewed and interpreted this imaging study as follows: Imaging: Ultrasound and MRI Radiologist's impression: EXAM: US RENAL CLINICAL HISTORY: flank pain, recent ureteral stent removal. TECHNIQUE: Goss scale, color and spectral Doppler were used. COMPARISON: CR XR lumbar spine complete from 01/05/2019 CR XR CHEST 2V PA LATERAL from 11/19/2022 FINDINGS: Right kidney: 11.5cm Echogenicity: Normal Hydronephrosis: No Cyst or mass: No Nephrolithiasis: No definite stones. Left kidney: 11.0cm Echogenicity: Normal Hydronephrosis: No Cyst or mass: No Nephrolithiasis: No definite stones. Bladder:Normal. Prevoid vol:62 cc Postvoid vol:0 cc IMPRESSION: Negative renal ultrasound. Lab Data Lab results reviewed: Yes I reviewed the patient's lab results. Labs: Laboratory Tests Range/Units 11/18/23 11/18/23 11:32 12:05 WBC (4.4-10.8) 10^3/uL 5.49 RBC (3.93-5.22) 10^6/uL 2.82 L Hgb (11.2-15.7) g/dL 9.5 L Hct (36.0-46.0) % 29.4 L MCV (80-95) fL 104 H MCH (27.0-33.0) pg 33.7 H MCHC (32.0-36.0) % 32.3 RDW (11.7-14.6) % 15.3 H Plt Count (130-400) 10^3/uL 188 MPV (8.0-11.0) fL 9.2 Immature Gran % % 0.0 Neutrophils % % 48.0 Lymphocytes % % 28.0 Atypical Lymphs % % 1 Monocytes % % 20.0 Eosinophils % % 3.0 Basophils % % 0.0 Nucleated RBC % (0.0-0.3) % 2.0 H Absolute Neutrophils (1.2-6.7) 10^3/uL 2.64 Absolute Lymphocytes (1.2-3.4) 10^3/uL 1.59 Absolute Monocytes (0.1-0.8) 10^3/uL 1.10 H Absolute Eosinophils (0.0-0.7) 10^3/uL 0.16 Absolute Basophils (0.0-0.2) 10^3/uL 0.00 RBC Morphology Normal Sodium (136-145) mmol/L 143 Potassium (3.5-5.1) mmol/L 3.4 L Chloride (98-107) mmol/L 106 Carbon Dioxide (21.0-32.0) mmol/L 27.3 Anion Gap (3-11) mmol/L 9.7 BUN (7-18) mg/dL 14 Creatinine (0.55-1.02) mg/dL 0.8 Est GFR (CKD-EPI 2020) (mL/min/1.73m2) 78.24 Glucose (74-106) mg/dL 108 H Calcium (8.5-10.1) mg/dL 9.4 Total Bilirubin (0.2-1.0) mg/dL 0.4 AST (15-37) U/L 13 L ALT (14-59) U/L 23 Alkaline Phosphatase (46-116) U/L 177 H Total Protein (6.4-8.2) g/dL 7.6 Albumin (3.4-5.0) g/dL 3.3 L Urine Color (Yellow) Yellow Urine Clarity (Clear) Clear Urine pH (5-8) 5.5 Ur Specific [place] (1.005-1.025) 1.020 Urine Protein (Neg-Trace) mg/dL Negative Urine Ketones (Negative) mg/dL Trace H Urine Blood (Negative) Moderate H Urine Nitrite (Negative) Negative Urine Bilirubin (Negative) Negative Urine Urobilinogen (Up to 0.2) mg/dL 0.2 Ur Leukocyte Esterase (Negative) Negative Urine RBC (0-2) HPF 3-5 H Urine WBC (0-5) HPF 0-2 Ur Epithelial Cells (Negative) HPF Few Urine Crystals (Negative) HPF Negative Urine Bacteria (Negative) HPF Rare Urine Casts (Negative) LPF Negative Urine Mucus (Negative) Negative Ur Culture Indicated? No Urine Glucose (Negative) mg/dL Negative Quality:SDOH Health Related Social Needs: No Data to Display PFSH All Active Problems (Updated 11/18/23 @ 14:39 by REZA Suggs) Lumbar back pain (Acute) Abnormal blood chemistry (Acute) History of fracture (Acute) Ex-smoker (Acute) Osteopenia (Acute) Height loss (Acute) Family hx osteoporosis (Acute) Bilateral knee pain (Acute) Bilateral hip pain (Acute) Back pain (Acute) Medicare annual wellness visit, subsequent (Acute) Arthralgia (Acute) Toe swelling (Acute) Toe erythema (Acute) Kidney stone (Chronic) Routine general medical examination at a health care facility (Acute) Edema (Acute 12/04/16) Encounter to establish care (Acute 12/07/17) Hyperlipidemia (Acute 12/04/16) Osteoarthritis of both knees (Acute 12/04/16) Tubular adenoma of colon (Acute 12/04/16) 11/17/19 Dr Annie Gillespie MD general surgery [facility].Colon tubular adenoma Medical History Ex-smoker Family hx osteoporosis Height loss History of fracture Osteopenia Surgical History S/P appendectomy S/P cholecystectomy S/P cystoscopy S/P hysterectomy Family History Mother Alzheimer's dementia Father Alzheimer's dementia Parkinsons disease Social History Smoking/Tobacco Use Status: Former Tobacco Use Quit Date: 01/30/13 Smoking risk assessment performed?: Yes Alcohol Intake: current Alcohol Intake frequency: a few times a week Alcohol type: wine Drug use: Never Substance use type: does not use Household members: spouse Number of Children: 2 number of grandchildren: 4 Communication Needs: None current occupation: NURSE What is your relationship status?: How often do you talk on the phone with friends or family?: three or more times per week How often do you get together with friends or relatives?: twice per week Panel score (0-1 are the most socially isolated patients): 2 What type of physical activity do you participate in: walking Duration: 15-30 minutes/day Frequency: 5-6 times per week Seatbelt use: sometimes Working smoke detector in home: Yes Carbon monox detector in home: Yes Do you feel safe at home: Yes Do you feel safe in your relationship?: Yes
--- NOTE | 2023-11-18 11:30 | DI.US_ITS ---
Exam(s) US RENAL EXAM: US RENAL CLINICAL HISTORY: flank pain, recent ureteral stent removal. TECHNIQUE: Goss scale, color and spectral Doppler were used. COMPARISON: CR XR lumbar spine complete from 01/05/2019 CR XR CHEST 2V PA LATERAL from 11/19/2022 FINDINGS: Right kidney: 11.5cm Echogenicity: Normal Hydronephrosis: No Cyst or mass: No Nephrolithiasis: No definite stones. Left kidney: 11.0cm Echogenicity: Normal Hydronephrosis: No Cyst or mass: No Nephrolithiasis: No definite stones. Bladder:Normal. Prevoid vol:62 cc Postvoid vol:0 cc IMPRESSION: Negative renal ultrasound. DATA REPOSITORY:
[2023-11-18 12:10] LABS: HCT 29.4 % (36.0-46.0); HGB 9.5 g/dL (11.2-15.7); MCH 33.7 pg (27.0-33.0); MCHC 32.3 % (32.0-36.0); MCV 104 fL (80-95); MPV 9.2 fL (8.0-11.0); Platelet Count 188 10^3/uL (130-400); RBC 2.82 10^6/uL (3.93-5.22); RDW 15.3 % (11.7-14.6); RDW-SD 58.4 fL; WBC 5.49 10^3/uL (4.4-10.8)
[2023-11-18 12:25] LABS: ALT 23 U/L (14-59); AST 13 U/L (15-37); Albumin 3.3 g/dL (3.4-5.0); Alkaline Phosphatase 177 U/L (46-116); Anion Gap 9.7 mmol/L (3-11); BUN 14 mg/dL (7-18); Bilirubin, Total 0.4 mg/dL (0.2-1.0); CO2 27.3 mmol/L (21.0-32.0); CREATININE 0.8 mg/dL (0.55-1.02); Calcium 9.4 mg/dL (8.5-10.1); Chloride 106 mmol/L (98-107); Estimated GFR 78.24 (mL/min/1.73m2); Glucose 108 mg/dL (74-106); Potassium 3.4 mmol/L (3.5-5.1); Sodium 143 mmol/L (136-145); Total Protein 7.6 g/dL (6.4-8.2)
[2023-11-18 12:31] LABS: Bilirubin Negative (Negative); Blood Moderate (Negative); Clarity Clear (Clear); Glucose Negative (Negative); Ketones Trace mg/dL (Negative); Leukocyte Esterase Negative (Negative); Nitrite Negative (Negative); Urobilinogen 0.2 mg/dL (Up to 0.2); pH 5.5 (5-8)
[2023-11-18 12:37] LABS: Absolute Neutrophil Count 2.64 10^3/uL (1.2-6.7)
[2023-11-18 12:38] LABS: Absolute Eosinophil Count 0.16 10^3/uL (0.0-0.7); Absolute Lymphocyte Count 1.59 10^3/uL (1.2-3.4); Atypical Lymphocytes % 1 %; Diff Comment Manual Differential; RBC Morphology Normal
[2023-11-18 12:45] LABS: Bacteria Rare HPF (Negative); C & S Indicated? No; Casts Negative LPF (Negative); Crystals Negative HPF (Negative); Epithelial Cells Few HPF (Negative); Mucus Negative (Negative); WBC 0-2 HPF (0-5)
[2023-11-18] MEDS: Lidocaine 5% Patch 1 PATCH TP (14:49)
[2023-11-18] MEDS: Acetaminophen 325 MG TAB 650 MG PO (14:49)
[2023-11-18] MEDS: Cyclobenzaprine 10 MG TAB PO (14:49)
== END 2023-11-18 15:07 | disposition home or self-care (01) ==
LOC: ER 15:21
PROVIDERS: Emergency Provider Physician Assistant; PCP Nurse Practitioner
DX: M54.50 Low back pain, unspecified (principal); R11.2 Nausea with vomiting, unspecified; R19.7 Diarrhea, unspecified; Z87.442 Personal history of urinary calculi
CPT/HCPCS: 76770; 80053; 99284; 81003; 81015; 85025; 99283

== ENCOUNTER 2023-11-25 20:21 | Outpatient (CLI) | payer MEDICARE, SELFPAY ==
[2023-11-25 16:18] LABS: HGB 9.4 g/dL (11.2-15.7); MCH 33.6 pg (27.0-33.0); MCHC 32.4 % (32.0-36.0); MCV 104 fL (80-95); MPV 9.3 fL (8.0-11.0); RDW 15.5 % (11.7-14.6); RDW-SD 58.6 fL; WBC 5.26 10^3/uL (4.4-10.8)
[2023-11-25 16:20] LABS: Bilirubin Negative (Negative); Blood Moderate (Negative); Clarity Clear (Clear); Glucose Negative (Negative); Ketones Negative (Negative); Leukocyte Esterase Negative (Negative); Nitrite Negative (Negative); Urobilinogen 0.2 mg/dL (Up to 0.2)
[2023-11-25 16:32] LABS: Bacteria Rare HPF (Negative); C & S Indicated? No/Sq. Contamination; Casts Negative LPF (Negative); Crystals Negative HPF (Negative); Epithelial Cells Moderate HPF (Negative); Mucus Negative (Negative); Other Cells Rare Transitional (Negative); WBC Negative HPF (0-5)
[2023-11-25 16:45] LABS: Iron 50 ug/dL (50-170)
[2023-11-25 17:09] LABS: Absolute Eosinophil Count 0.16 10^3/uL (0.0-0.7); Absolute Monocyte Count 0.74 10^3/uL (0.1-0.8); Absolute Neutrophil Count 2.26 10^3/uL (1.2-6.7); Atypical Lymphocytes % 2 %
[2023-11-25 17:10] LABS: Diff Comment Manual Differential; Platelet Count 168 10^3/uL (130-400); Polychromasia Present
[2023-11-25 17:12] LABS: ALT 20 U/L (14-59); AST 15 U/L (15-37); Albumin 3.4 g/dL (3.4-5.0); Alkaline Phosphatase 127 U/L (46-116); Anion Gap 9.4 mmol/L (3-11); BUN 16 mg/dL (7-18); Bilirubin, Total 0.25 mg/dL (0.2-1.0); CO2 28.6 mmol/L (21.0-32.0); CREATININE 0.9 mg/dL (0.55-1.02); Calcium 9.3 mg/dL (8.5-10.1); Chloride 103 mmol/L (98-107); Estimated GFR 67.92 (mL/min/1.73m2); Ferritin 651 ng/mL (8-252); Glucose 111 mg/dL (74-106); Potassium 3.5 mmol/L (3.5-5.1); Sodium 141 mmol/L (136-145); TSH (W/Ref FT4) 1.73 uIU/mL (0.36-3.74); Total Protein 7.7 g/dL (6.4-8.2); Vitamin B12 665 pg/mL (193-986)
== END 2023-11-25 20:22 | disposition home or self-care (01) ==
LOC: LBO 20:21
PROVIDERS: PCP Nurse Practitioner; Visit Provider Nurse Practitioner
DX: D64.9 Anemia, unspecified (principal); R79.9 Abnormal finding of blood chemistry, unspecified; J45.909 Unspecified asthma, uncomplicated; R31.9 Hematuria, unspecified
CPT/HCPCS: 36415; 80053; 81003; 81015; 82607; 82728; 83540; 84443; 85025